=== PATIENT | male | born 1955 | race Caucasian/White ===

== ENCOUNTER 2018-03-23 22:42 | Emergency (ER) | payer BC, OTHER ==
[~2018-03-23] VITALS: Ht 177.8 cm; Wt 131.8 kg
[~2018-03-23 22:42] MED LIST: CEFTIN500 MG PO; CIALIS2.5 MG; COUMADIN; FERROUS SU325 MG/TAB PO; FLOMAX 0.40.4 MG/CAP PO; FOLIC ACID PO; NORCO 325 MG-51 TAB PO; PHENERGAN 25 TA25 MG PO; SEPTRA DS 8001 TAB PO; TOPROL XL 50MG50 MG PO; UROCIT PO; UROCIT-K 1010 MEQ PO; VITAMIN C BUFF500 MG PO; VITAMIN C250250 MG PO; WELLBUTRIN PO
[2018-03-23 22:50] VITALS: TEMP 97.1
[2018-03-23] MEDS ORDERED: LIPITOR 40MG TA40 MG PO (23:27)
[2018-03-23] MEDS ORDERED: ASPIRIN E.C. 8181 MG PO (23:27)
[2018-03-23] MEDS ORDERED: PRINIVIL5 MG PO (23:27)
[2018-03-24 00:05] LABS: COLLECTION METHOD CLEAN CATCH
[2018-03-24 00:22] LABS: MUCOUS Present /lpf; PH 5 (5-8); SQUAMOUS EPITHELIAL 0-2 /hpf; URINE APPEARANCE Hazy; URINE BACTERIA None Seen /hpf; URINE BILIRUBIN Negative (NEGATIVE); URINE BLOOD 3+ (NEGATIVE); URINE COLOR Yellow; URINE GLUCOSE Negative (NEGATIVE); URINE KETONE Negative (NEGATIVE); URINE LEUKOCYTE ESTERASE Trace (NEGATIVE); URINE NITRATE Negative (NEGATIVE); URINE PROTEIN(semi-quant) 1+ (NEGATIVE); URINE RBC 20-50 /hpf; URINE UROBILINOGEN Negative (NEGATIVE)
[2018-03-24 01:06] VITALS: BP 126/81; PULSE 70
== END 2018-03-24 01:12 | disposition home or self-care (01) ==
LOC: COL.ER 22:42
PROVIDERS: Nurse Practitioner
DX: R10.9 Unspecified abdominal pain (principal); F32.9 Major depressive disorder, single episode, unspecified; E78.00 Pure hypercholesterolemia, unspecified; Z87.442 Personal history of urinary calculi; Z95.5 Presence of coronary angioplasty implant and graft; Z98.890 Other specified postprocedural states; Z79.82 Long term (current) use of aspirin
CPT/HCPCS: J1885; J7030